=== PATIENT | male | born 1985 | race Caucasian/White ===

== ENCOUNTER 2018-12-16 05:41 | Emergency (ER) | payer SELFPAY ==
[2018-12-16] MEDS ORDERED: Preparation H Ointment 28 GM TUBE ONE (07:03)
== END 2018-12-16 06:23 | disposition home or self-care (01) ==
LOC: MADERS 05:41
DX: K64.4 Residual hemorrhoidal skin tags (principal); F17.210 Nicotine dependence, cigarettes, uncomplicated
CPT/HCPCS: 99282